=== PATIENT | male | born 1980 | race African-American/Black ===

== ENCOUNTER 2018-05-01 05:19 | Emergency (ER) | payer OTHER ==
[~2018-05-01] VITALS: Ht 167.6 cm; Wt 104.3 kg
[2018-05-01 06:48] VITALS: BP 154/80
== END 2018-05-01 06:48 | disposition home or self-care (01) ==
LOC: ED 05:19
DX: T81.30XA Disruption of wound, unspecified, initial encounter (principal); J45.909 Unspecified asthma, uncomplicated

== ENCOUNTER 2019-05-06 23:07 | Emergency (ER) | payer OTHER ==
[~2019-05-06] VITALS: Ht 172.7 cm; Wt 112.5 kg
[2019-05-06 23:33] VITALS: BP 142/73; Ht 172.7 cm; Wt 112.5 kg
== END 2019-05-07 00:34 | disposition home or self-care (01) ==
LOC: ED 23:07
DX: S80.861A Insect bite (nonvenomous), right lower leg, initial encounter (principal); L03.115 Cellulitis of right lower limb; J45.909 Unspecified asthma, uncomplicated; W57.XXXA Bitten or stung by nonvenomous insect and other nonvenomous arthropods, initial encounter; Y93.89 Activity, other specified; Y92.89 Other specified places as the place of occurrence of the external cause; Y99.8 Other external cause status